=== PATIENT | female | born 1970 | race Caucasian/White ===

== ENCOUNTER → 2017-08-18 | Outpatient (CLI) | payer OTHER | LOC: FIMAGING 15:29 | PROVIDERS: ATTEND Obstetrics & Gynecology Gynecology | DX: Z12.31 Encounter for screening mammogram for malignant neoplasm of breast (principal) | CPT/HCPCS: G0202 ==

== ENCOUNTER → 2018-11-16 | Outpatient (CLI) | payer OTHER | LOC: CIMAGING 09:59 | PROVIDERS: ATTEND Obstetrics & Gynecology Gynecology | DX: Z12.31 Encounter for screening mammogram for malignant neoplasm of breast (principal) ==

== ENCOUNTER → 2018-11-20 | Outpatient (CLI) | payer OTHER | LOC: FIMAGING 11:38 | PROVIDERS: ATTEND Obstetrics & Gynecology Gynecology | DX: R92.0 Mammographic microcalcification found on diagnostic imaging of breast (principal) ==

== ENCOUNTER → 2018-12-11 | Day surgery (SDC) | payer OTHER ==
[~2018-12-11] MED LIST: BUPIVACAINE 0.5% 30 ML SDV ONE; LIDOCAINE 1% 300 MG/30 ML SDV ONE
== END | disposition home or self-care (01) ==
LOC: FIMAGING 07:26
PROVIDERS: ATTEND Obstetrics & Gynecology Gynecology
DX: D24.2 Benign neoplasm of left breast (principal); N60.12 Diffuse cystic mastopathy of left breast; N60.92 Unspecified benign mammary dysplasia of left breast; R92.0 Mammographic microcalcification found on diagnostic imaging of breast